=== PATIENT | male | born 1995 | race Caucasian/White ===

== ENCOUNTER → 2019-06-07 | Outpatient (CLI) | payer BC | LOC: COL.RAD 14:45 | DX: N50.3 Cyst of epididymis (principal) ==

== ENCOUNTER 2021-04-20 03:01 | Emergency (ER) | payer BC ==
[~2021-04-20] VITALS: Ht 185.4 cm; Wt 70.5 kg
[2021-04-20] MEDS ORDERED: VENTOLIN0.09 MG IH (05:07)
[2021-04-20 05:15] VITALS: BP 128/63; PULSE 78; TEMP 98.3
[2021-04-20] MEDS ORDERED: CLEVER CHOICE1 EA20 MC (17:07)
== END 2021-04-20 05:15 | disposition home or self-care (01) ==
LOC: COL.ER 03:01
DX: J39.8 Other specified diseases of upper respiratory tract (principal)